=== PATIENT | male | born 1995 | race African-American/Black ===

== ENCOUNTER 2016-11-03 00:47 | Emergency (ER) | payer MEDICAID ==
[~2016-11-03] VITALS: Ht 180.3 cm; Wt 75.0 kg
[2016-11-03] MEDS ORDERED: SODIUM CHLORIDE 0.9% 1,000 ML IV ONE (01:38)
[2016-11-03] MEDS ORDERED: ONDANSETRON HCL 4MG/2ML VIAL IV STA (01:38)
[2016-11-03] MEDS ORDERED: KETOROLAC 30MG/ML VIAL IV STA (01:38)
[2016-11-03] MEDS ORDERED: FAMOTIDINE 20MG/2ML VIAL IV ONE (01:45)
[2016-11-03 02:13] VITALS: BP 115/60
== END 2016-11-03 03:43 | disposition home or self-care (01) ==
LOC: ER 00:48
DX: K52.9 Noninfective gastroenteritis and colitis, unspecified (principal)
CPT/HCPCS: 96361; 96374; 96375; 99284; J1885; J2405; J3490; J7030; Z7610